=== PATIENT | male | born 1950 | race Caucasian/White ===

== ENCOUNTER → 2020-04-28 | Outpatient (CLI) | payer MEDICARE, OTHER ==
[~2020-04-28] MED LIST: LEVSOD125 PO
== END | disposition home or self-care (01) ==
LOC: LAB SHORT 16:02 → LAB 16:02
DX: A49.9 Bacterial infection, unspecified (principal)
CPT/HCPCS: 87070

== ENCOUNTER → 2020-04-28 | Outpatient (CLI) | payer MEDICARE, OTHER | LOC: LAB 10:30 → LAB SHORT 10:30 | DX: L30.8 Other specified dermatitis (principal) | CPT/HCPCS: 88305; 88312 ==

== ENCOUNTER 2020-10-06 09:56 | Day surgery (SDC) | payer MEDICARE, OTHER ==
--- NOTE | 2020-10-06 11:10 | NUR ---
Ambulatory in Day Surgery Discharge instructions reviewed with patient. Patient verbalizes understanding. Copy given to patient to take home. History, Chart, Medications and Allergies reviewed before start of procedure.Lungs clear T/O to Auscultation. Patient confirms NPO status and agrees with scheduled surgery. PT TAKEN TO CT SCAN AT 1035 AFTER HISTORY TAKEN AND DOCUMENTS SIGNED. PLACED 20G CT IV IN RFA WITHOUT DIFFICULTY AND THEN REMOVED WITH CATH INTACT AFTER PROCEDURE, SITE CLEAR. PT TOLERATED PROCEDURE WELL WITHOUT ANY C/O FORM RECEIVING NITRO OR METOPROLOL. PROCEDURE DONE AT 1050. PT DISCAHARGED AT 1105. ALL BELONINGS ACCOUNTED FOR.
--- NOTE | 2020-10-06 11:14 | NUR ---
GAVE METOPROLOL AT 1028 FOR HR SUSTAINING IN UPPER 70"S. MED BROUGHT PT HR DOWN TO LOW 60'S. PT RECEIVED ONE NITRO AT 1045.
== END 2020-10-06 11:09 | disposition home or self-care (01) ==
LOC: ORSCMMR 09:56 → ORD 09:56 → CT 09:56 → ORD 11:09
DX: I77.810 Thoracic aortic ectasia (principal); R00.2 Palpitations; R94.31 Abnormal electrocardiogram [ECG] [EKG]
CPT/HCPCS: 75574; Q9967

== ENCOUNTER 2022-06-09 12:48 | Day surgery (SDC) | payer MEDICARE, OTHER ==
[~2022-06-09] VITALS: Ht 175.3 cm; Wt 73.0 kg
[2022-06-09] MEDS ORDERED: ASPI81CH (13:16)
[2022-06-09] MEDS ORDERED: ERGO400 (13:16)
[2022-06-09] MEDS ORDERED: FISH OIL 1,2001 EAC7 (13:16)
== END 2022-06-09 17:17 | disposition home or self-care (01) ==
LOC: ORSCSDS 12:48
PROVIDERS: Internal Medicine Gastroenterology
PROC: 0DBL8ZX Excision of Transverse Colon, Via Natural or Artificial Opening Endoscopic, Diagnostic (ICD-10-PCS; principal; 2022-06-09 14:00)
PROC: 0DB68ZX Excision of Stomach, Via Natural or Artificial Opening Endoscopic, Diagnostic (ICD-10-PCS; principal; 2022-06-09 14:00)
PROC: 0DBN8ZX Excision of Sigmoid Colon, Via Natural or Artificial Opening Endoscopic, Diagnostic (ICD-10-PCS; principal; 2022-06-09 14:00)
PROC: 0DBP8ZX Excision of Rectum, Via Natural or Artificial Opening Endoscopic, Diagnostic (ICD-10-PCS; principal; 2022-06-09 14:00)
PROC: 0DB58ZX Excision of Esophagus, Via Natural or Artificial Opening Endoscopic, Diagnostic (ICD-10-PCS; principal; 2022-06-09 14:00)
DX: R13.10 Dysphagia, unspecified (principal); K22.10 Ulcer of esophagus without bleeding; K44.9 Diaphragmatic hernia without obstruction or gangrene; K21.9 Gastro-esophageal reflux disease without esophagitis; K62.1 Rectal polyp; K63.5 Polyp of colon; K57.30 Diverticulosis of large intestine without perforation or abscess without bleeding; Z12.11 Encounter for screening for malignant neoplasm of colon; E78.5 Hyperlipidemia, unspecified; E03.9 Hypothyroidism, unspecified; Z79.82 Long term (current) use of aspirin; Z79.899 Other long term (current) drug therapy
CPT/HCPCS: J2704; J7120

== ENCOUNTER 2022-08-26 06:49 | Day surgery (SDC) | payer MEDICARE, OTHER ==
[~2022-08-26] VITALS: Ht 175.3 cm; Wt 75.0 kg
[~2022-08-26 06:49] MED LIST changes: +ASPI81CH; +ERGO400; +FISH OIL 1,2001 EAC7
== END 2022-08-26 08:50 | disposition home or self-care (01) ==
LOC: ORSCSDS 06:49
PROVIDERS: Internal Medicine Gastroenterology
PROC: 0DB58ZX Excision of Esophagus, Via Natural or Artificial Opening Endoscopic, Diagnostic (ICD-10-PCS; principal; 2022-08-26 08:15)
DX: R13.10 Dysphagia, unspecified (principal); K22.2 Esophageal obstruction; K44.9 Diaphragmatic hernia without obstruction or gangrene; Z87.11 Personal history of peptic ulcer disease; K21.00 Gastro-esophageal reflux disease with esophagitis, without bleeding; E78.5 Hyperlipidemia, unspecified; E03.9 Hypothyroidism, unspecified; Z79.82 Long term (current) use of aspirin; Z79.899 Other long term (current) drug therapy
CPT/HCPCS: 88305; C1726; J2704; J7120

== ENCOUNTER 2024-03-04 07:46 | Day surgery (SDC) | payer MEDICARE, OTHER ==
[~2024-03-04 07:46] MED LIST changes: +COQ-10100 MG PO; +OLME5TAB PO; +OMEP20ER PO
[2024-03-04] MEDS ORDERED: Metoprolol Tartrate 1 MG/ML 5 ML VIAL IV ONE (16:58)
== END 2024-03-05 01:07 | disposition home or self-care (01) ==
LOC: CT 07:46
DX: I77.810 Thoracic aortic ectasia (principal); I42.9 Cardiomyopathy, unspecified; I25.10 Atherosclerotic heart disease of native coronary artery without angina pectoris
CPT/HCPCS: 75574; Q9967